=== PATIENT | male | born 1990 | race Caucasian/White ===

== ENCOUNTER 2018-05-13 20:54 | Emergency (ER) | payer BC ==
[2018-05-13] MEDS ORDERED: IPRATROPIUM/ALBUTEROL 3 ML DEYVIAL IH ONE (21:49)
--- NOTE | 2018-05-13 21:49 | EDPHY ---
H & P Stated Complaint: asthma attack SOB Time Seen by Provider: 05/13/18 21:49 HPI/ROS: CHIEF COMPLAINT: Worsening asthma, cough HISTORY OF PRESENT ILLNESS: The patient has a history of chronic asthma. He typically uses Xopenex, and inhaled steroid and Singulair. The patient reports he has had several upper respiratory infections over the past several weeks. He reports that he is having worsening dyspnea and cough. The patient has not established a primary care provider here and [place]. The patient denies any pleuritic chest pain. He denies high fever. He denies significant sputum. The patient denies additional complaints of abdominal pain, headache, rash, neck pain, numbness or weakness. The patient reports that he is feeling moderately short of breath. REVIEW OF SYSTEMS: A comprehensive 10 point review of systems is otherwise negative aside from elements mentioned in the history of present illness. Source: Patient - Personal History Current Tetanus/Diphtheria Vaccine: Yes Current Tetanus Diphtheria and Acellular Pertussis (TDAP): Yes - Medical/Surgical History Hx Asthma: Yes Hx Chronic Respiratory Disease: No Hx Diabetes: No Hx Cardiac Disease: No Hx Renal Disease: No Hx Cirrhosis: No Hx Alcoholism: No Hx HIV/AIDS: No Hx Splenectomy or Spleen Trauma: No Other PMH: asthma - Social History Smoking Status: Never smoked - Physical Exam Exam: General Appearance: Alert, no distress Eyes: Pupils equal and round no pallor or injection ENT, Mouth: Mucous membranes moist Respiratory: Scant expiratory wheezing, rhonchorous breath sounds right lung base Cardiovascular: Regular rate and rhythm Gastrointestinal: Abdomen is soft and nontender, no masses, bowel sounds normal Neurological: 5/5 strength noted all 4 extremities Skin: Warm and dry, no rashes Musculoskeletal: Neck is supple nontender Extremities: symmetrical, full range of motion Constitutional: Initial Vital Signs Temperature (C) 37.2 C 05/13/18 21:09 Heart Rate 96 05/13/18 21:09 Respiratory Rate 18 05/13/18 21:09 Blood Pressure 127/88 H 05/13/18 21:09 O2 Sat (%) 96 05/13/18 21:09 O2 Delivery Mode Room Air Allergies/Adverse Reactions: azithromycin [From Zithromax] Allergy (Verified 05/13/18 21:12) Home Medications: Medication Instructions Recorded Albuterol [Ventolin Hfa Inhaler] 2 puffs IH QID PRN #1 mdi 05/13/18 Flovent Hfa 05/13/18 Singulair 05/13/18 Xopenex 05/13/18 predniSONE [prednisone 20mg (RX)] 3 tab PO DAILY #15 tab 05/13/18 Medical Decision Making - Diagnostics Imaging Results: Chest x-ray PA/lateral: Images reviewed by myself. Impression: Negative for pneumonia or focal infiltrate. ED Course/Re-evaluation: The patient presents to the ED with an acute exacerbation of asthma. The patient is nontoxic and well-appearing. He does have scant expiratory wheezing noted on exam. The patient was given a DuoNeb in the emergency department. He was given 60 mg of oral prednisone. Chest x-ray demonstrates no evidence of a pneumonia. Re-evaluated the patient at 11:00 p.m. He is feeling much better. Air movement is good. No hypoxemia. Patient will be discharged home with a 5 day course of prednisone, a albuterol refill and a referral to a local primary care provider. Differential Diagnosis: Differential diagnosis considered includes asthma, bronchitis, pneumonia - Data Points Medications Given: Discontinued Medications Albuterol/Ipratropium (Duoneb) 3 ml IH EDNOW ONE Stop: 05/13/18 21:50 Last Admin: 05/13/18 21:56 Dose: 3 ml Prednisone (Prednisone) 60 mg PO EDNOW ONE Stop: 05/13/18 21:56 Last Admin: 05/13/18 22:11 Dose: 60 mg Departure - Departure Disposition: Home, Routine, Self-Care Clinical Impression: Exacerbation of asthma Condition: Good Instructions: Asthma (ED) Additional Instructions: 1. Take prednisone as directed for next 5 days. 2. Use albuterol inhaler up to every 2-4 hours as needed. 3. You have been given the number of a primary care provider would be happy to see you in follow-up. 4. Please return to the ED markedly worsening respiratory symptoms or other concerns. Referrals: Lissa Bailey MD [Medical Doctor] - As per Instructions Prescriptions: Albuterol [Ventolin Hfa Inhaler] 2 puffs IH QID PRN #1 mdi PRN Reason: for shortness of breath predniSONE [prednisone 20mg (RX)] 3 tab PO DAILY #15 tab
[2018-05-13] MEDS ORDERED: predniSONE 20 MG TAB PO ONE (21:55)
[2018-05-13 23:00] VITALS: BP 126/90
== END 2018-05-13 23:00 | disposition home or self-care (01) ==
DX: J45.901 Unspecified asthma with (acute) exacerbation (principal); Z79.899 Other long term (current) drug therapy
CPT/HCPCS: J7512